=== PATIENT | female | born 1950 | race Caucasian/White ===

== ENCOUNTER 2018-01-10 11:41 | Emergency (ER) | payer MEDICARE, MEDICAID ==
[~2018-01-10] VITALS: Ht 175.3 cm; Wt 90.9 kg
[2018-01-10] MEDS ORDERED: HYDROCODONE/APAP 7.5/325MG 1 TAB TABLET PO ONE (13:00)
[2018-01-10] MEDS ORDERED: KETOROLAC 60MG/2ML VIAL IM ONE (13:00)
[2018-01-10 13:34] VITALS: BP 215/95
[2018-01-10] MEDS ORDERED: ACETAMINOPHEN 325MG TABLET PO STA (16:21)
== END 2018-01-10 16:34 | disposition home or self-care (01) ==
LOC: ER 12:56
DX: S90.01XA Contusion of right ankle, initial encounter (principal); M25.512 Pain in left shoulder; M25.511 Pain in right shoulder; Z90.49 Acquired absence of other specified parts of digestive tract; W18.39XA Other fall on same level, initial encounter; Y93.01 Activity, walking, marching and hiking; Y92.89 Other specified places as the place of occurrence of the external cause; Y99.8 Other external cause status
CPT/HCPCS: 73030; 73610; 96372; 99284; J1885